=== PATIENT | female | born 1975 | race Caucasian/White ===

== ENCOUNTER 2017-11-09 10:08 | Outpatient (RCR) | payer OTHER, SELFPAY | END 2017-11-09 10:30 | disposition home or self-care (01) | LOC: PT 10:08 | PROVIDERS: Visit Provider Physician Assistant | DX: S99.912A Unspecified injury of left ankle, initial encounter (principal) | CPT/HCPCS: 97760 ==

== ENCOUNTER → 2017-11-09 15:45 | Outpatient (CLI) | payer OTHER, SELFPAY ==
--- NOTE | 2017-11-09 15:48 | MR_ITS ---
MR ankle LT wo con HISTORY: Left ankle pain, swelling, and instability ITS.REASON: LEFT ANKLE INJURY ORDERING PHYSICIAN: JOVANI Hernandez PATIENT AGE: 41 years COMPARISON: None TECHNIQUE: Standard multiplanar multiecho sequences are performed without contrast. FINDINGS: There is a moderate amount of fluid within ankle joint both anteriorly and posteriorly. The anterior talofibular ligament is discontinuous posteriorly consistent with tear of the ATFL. The posterior aspect of the ligament lies medial to the tip of the lateral malleolus. The remaining ligamentous and tendinous structures appear intact. There is mild subcutaneous soft tissue swelling along the lateral and anterolateral aspect of the ankle. A benign-appearing cystic lesion involves the mid aspect of the calcaneus measuring approximately 9 x 6 mm and is in the subcortical region of the mid aspect of the subtalar joint No obvious fracture or bone bruise. The talar dome has an unremarkable appearance. IMPRESSION: Tear of the posterior aspect of the anterior talofibular ligament with ankle joint effusion and soft tissue slight along the lateral aspect of the ankle
== END ==
PROVIDERS: Family Provider Family Medicine; PCP Physician Assistant; Visit Provider Physician Assistant
DX: S99.912A Unspecified injury of left ankle, initial encounter (principal)
CPT/HCPCS: 73721

== ENCOUNTER → 2017-11-22 16:13 | Outpatient (CLI) | payer OTHER, SELFPAY ==
--- NOTE | 2017-11-22 | XR_ITS ---
XR ankle RT min 3V HISTORY: Ankle pain ITS.REASON: PAIN ORDERING PHYSICIAN: Deborah Marte DPM PATIENT AGE: 41 years COMPARISON: None FINDINGS: Weightbearing views are performed No fracture or dislocation. No lytic or blastic change. There is normal mineralization.. The joint spaces are well-preserved. No significant degenerative/arthritic changes. No erosive changes evident. IMPRESSION: Negative ankle, no acute finding
--- NOTE | 2017-11-22 | XR_ITS ---
XR ankle LT min 3V HISTORY: Ankle pain ITS.REASON: PAIN ORDERING PHYSICIAN: Deborah Marte DPM PATIENT AGE: 41 years COMPARISON: None FINDINGS: Weightbearing views performed No fracture or dislocation. No lytic or blastic change. There is normal mineralization.. The joint spaces are well-preserved. No significant degenerative/arthritic changes. No erosive changes evident. IMPRESSION: Negative ankle, no acute finding
== END ==
PROVIDERS: Visit Provider Podiatrist
DX: M25.572 Pain in left ankle and joints of left foot (principal); M25.571 Pain in right ankle and joints of right foot
CPT/HCPCS: 73610

== ENCOUNTER → 2017-12-21 09:37 | Outpatient (CLI) | payer OTHER, SELFPAY ==
--- NOTE | 2017-12-21 10:01 | XR_ITS ---
XR chest 2V HISTORY: ITS.REASON: HTN ORDERING PHYSICIAN: Deborah Marte DPM PATIENT AGE: 41 years COMPARISON: None available FINDINGS: The cardiomediastinal silhouette and pulmonary vascularity are within normal limits. The lungs are clear without infiltrates, suspicious nodules, or pleural effusions. No acute bony abnormalities. IMPRESSION: Negative chest, no acute finding
[2017-12-21 10:16] LABS: Anion Gap 11.5 mEq/L (5-15); Basophils # 0.1 K/mm3 (0-0.2); Basophils % 0.8 % (0.1-2.0); Blood Urea Nitrogen 12 mg/dL (7-18); Carbon Dioxide 30 mmol/L (21.0-32.0); Chloride 102 mmol/L (98-107); Creatinine,Serum 0.96 mg/dL (0.55-1.02); Eosinophils # 0.3 K/mm3 (0.0-0.4); Eosinophils % 2.7 % (0.1-12.0); Estimated Glomerular Filt Rate 65 ml/min (>60); GFR (African American) 78 ML/MIN (>60); Glucose 97 mg/dL (74-106); Hematocrit 41.6 % (37.0-47.0); Hemoglobin 13.8 g/dL (12.2-16.2); Lymphocytes # 2.4 K/mm3 (0.7-4.5); Lymphocytes % 23.9 K/mm3 (10-50); Mean Corpuscular HGB Conc 33.2 g/dL (31.8-35.4); Mean Corpuscular Hemoglobin 33.5 pg (27.0-31.2); Mean Corpuscular Volume 100.6 fl (81-99); Mean Platelet Volume 8.3 fl (7.4-10.4); Monocytes # 0.4 K/mm3 (0.1-1.0); Monocytes % 4.3 % (1.7-9.3); Neutrophils # 6.7 K/mm3 (1.8-7.8); Neutrophils % 68.3 % (37.0-80.0); Platelet Count 338 K/mm3 (142-424); Potassium 4.5 mmoL/L (3.5-5.1); Red Blood Count 4.13 M/mm3 (4.20-5.40); Red Cell Distribution Width 13.3 % (11.5-17.5); Sodium 139 mmol/L (136-145); White Blood Count 9.8 K/mm3 (4.8-10.8)
== END ==
PROVIDERS: Visit Provider Podiatrist
DX: Z01.818 Encounter for other preprocedural examination (principal); S99.912D Unspecified injury of left ankle, subsequent encounter; S93.492D Sprain of other ligament of left ankle, subsequent encounter; S93.432A Sprain of tibiofibular ligament of left ankle, initial encounter
CPT/HCPCS: 36415; 71046; 80048; 85025; 93005

== ENCOUNTER 2017-12-27 08:13 | Day surgery (SDC) | payer OTHER, SELFPAY ==
[2017-12-26 08:53] VITALS: BMI 32.9
[2017-12-27] VITALS (13 sets, daily range): BP systolic 114–148; BP diastolic 61–86; PULSE 78–105; RESP 16; TEMP 36.6–43; O2SAT 98–99
[2017-12-27 08:38] LABS: Urine Pregnancy, HCG Qual. Negative (Negative)
--- NOTE | 2017-12-27 12:59 | HMH.ANESCL ---
[facility] Anesthesia Checklist - Patient Identification Patient Identification: Arm Band - Structural Data Admitted From: Home Planned Operative Procedure/s: left ankle arthroscopy Consent for Planned Operative Procedure(s) Verified: Yes Verified Documents: Surgical Consent, History and Physical - NPO Status Verified Time NPO: 00:00 - Additional verifications Anesthesia Reactions: No - Airway Assessment C-Spine Mobility Assessed: Yes (mp2) TMJ Mobility Assessed: Yes Dentition: Good Dentition - Neurological Assessment Level of Consciousness: Awake, Alert - Anesthesia Plan Anesthesia Risk discussed: Yes Anesthesia Plan: Verified ASA Class: II Anesthesia Type: General (with fem/sciatic block) [facility] Anesthesia HX I have reviewed the patient's past medical history: Yes Medical History: Reports:: Hypertension, Seizures (migraine related) Denies:: Cancer, Chronic Obstructive Pulmonary Disease (COPD), Diabetes Mellitus Type 1, Diabetes Mellitus Type 2, Gastroesophageal Reflux Disease(GERD), Heart Murmur, Hyperlipidemia, MRSA Other Medical History: Denies: Blood Transfusion Reaction Other Surgeries: Yes: , Tubal Ligation, Other Amputation: No Fractures: No *Family Hx:: Cancer, Hypertension
--- NOTE | 2017-12-27 13:00 | P.PN_ITS ---
[facility] Anesthesia Record Part II Discharge Time: 13:25 Destination: [facility] PACU nurse assessment reviewed?: Yes Patient Condition:: Good Anesthesia Complications:: None
--- NOTE | 2017-12-27 13:00 | P.PN_ITS ---
[facility] Anesthesia Record Part I Intake, IV Amount: 2,000 Estimated blood loss (mL): 30 Urine output (mL): 800 Blood Pressure: 135/82 SaO2: 99 Pulse Rate: 98 Respiratory Rate: 16 Temperature: 98.5 F Patient is:: Drowsy, Stable Stable to PACU at:: 12:55
--- NOTE | 2017-12-27 13:00 | HMH.ANESII ---
[facility] Anesthesia Record Part II Discharge Time: 13:25 Destination: [facility] PACU nurse assessment reviewed?: Yes Patient Condition:: Good Anesthesia Complications:: None
--- NOTE | 2017-12-27 13:04 | XR_ITS ---
XR ankle LT min 3V HISTORY: Follow-up ORIF ITS.REASON: post op ORDERING PHYSICIAN: Deborah Marte DPM PATIENT AGE: 41 years COMPARISON: None FINDINGS: Study is obtained through a splint. There is has been side plate placed at the distal shaft of the fibula with 2 screws. There are 2 metallic densities along the medial aspect of the distal tibia with some to be transfixed between the bone plate in these opacities by a radiolucent structure. There is good alignment. Small amount soft tissue gas noted of the anterior talus. IMPRESSION: Status post ORIF distal tib-fib with good alignment
--- NOTE | 2017-12-27 13:04 | HMH.OPNOTE ---
Date of procedure: 12/27/17 Pre-op Diagnosis:: Left ankle synovitis Left syndesmotic ligament tear Left anterior talofibular ligament tear, calcaneal fibular ligament tear Left chronic ankle instability Post-op Diagnosis:: Left ankle synovitis Left syndesmotic ligament tear Left anterior talofibular ligament tear, calcaneal fibular ligament tear Left chronic ankle instability Procedure performed:: Left ankle arthroscopy Left ankle synovectomy Left open reduction internal fixation syndesmosis (syndesmotic repair) Left modified Brostr?m lateral ankle ligament repair/stabilization Surgeon:: Deborah Marte DPM CLAIM PROCESSING SPECIALIST:: Gera Hidalgo Anesthesia: GETA Estimated blood loss (mL): 30 Clinical Note:: Ms. Cleveland is a 41-year-old female who presents for evaluation of left ankle pain. Date of injury 10/27/17. She initially went to a [facility] and treatments had x-rays which were negative fracture. Patient had continued pain and had an MRI 11/09/2017. The MRI showed tearing of the anterior talofibular ligament with ankle joint effusion and soft tissue swelling along the lateral aspect of the ankle. She does report a history of a left ankle sprain 4 years ago in which she was weightbearing in a fracture boot and had physical therapy. Patient complains of continued pain, swelling and instability. She was originally a short fracture boot which we changed to a tall boot. She was nonweightbearing with a rolling the scooter. She states she noticed no difference whether she was nonweightbearing in the scooter or weightbearing. Still having pain and feelings of instability. She did go without the boot and now she feels unstable not only in the ankle joint but also higher up with pain extending from the ankle to the lower extremity. She states that even in the boot she feels like the lower extremity is is twisting and and widening . Patient's symptoms have not improved. She has been compliant, NWB in fracture boot. Other previous treatment includes ice, elevation, Mobic, short fracture boot weightbearing, nonweightbearing until fracture boot, immobilization and nonweightbearing with a rolling the scooter. Patient now complains of increased instability even within the boot she feels that the distal leg is and the pain has not resolved. Left Ankle Pre-op: Conservative treatment discussed but has failed. She has been immobilized in a BK splint, fracture boot, NSAIDs, ice, elevation, rest and failed home PT. We discussed surgery. All risks and benefits were discussed including but not limited to: damage to blood vessels and nerves, bleeding, infection, wound complications, delayed or non-union of bone, post-traumatic arthritis, need for further surgery, need for removal of implant, prolonged swelling of the extremity, prolonged pain, RSD/CRPs, DVT, and anesthetic complications. No guarantees were given. All questions fully answered. The patient verbalized understanding and agreed to proceed with surgery. Consent was obtained. Necessary labs and pre-op testing ordered: CBC, BMP, EKG, CXR. Pt was given a Rx for [place] 7.5/325 # 30, Zofran, Motrin #60, and recommended she take aspirin 325 mg postoperatively. The risk factors for DVTs blood clots. She has no family history of blood clots. At this time I recommend that she takes aspirin after surgery and we will hold off on Lovenox anticoagulative therapy. She has fracture boot and rolling knee scooter. Patient verbalized understanding. She will follow up with Cathy Luque tomorrow for medical clearance. Plan surgery for: Wedn 12/27/17 for left modified Brostrum lateral ankle ligament repair, ORIF syndesmosis (syndesmotic ligament repair), ankle arthroscopy Operative findings:: Left ankle synovitis. The talar cartilage was all intact. There was synovitis noted to the ankle joint with hemorrhagic fluid lining the peroneal tendons. Peroneal tendons were intact with no tears noted. Complete tear noted to the ATFL and
--- NOTE | 2017-12-27 13:07 | P.OP_ITS ---
Date of procedure: 12/27/17 Pre-op Diagnosis:: Left ankle synovitis Left syndesmotic ligament tear Left anterior talofibular ligament tear, calcaneal fibular ligament tear Left chronic ankle instability Post-op Diagnosis:: Left ankle synovitis Left syndesmotic ligament tear Left anterior talofibular ligament tear, calcaneal fibular ligament tear Left chronic ankle instability Procedure performed:: Left ankle arthroscopy Left ankle synovectomy Left open reduction internal fixation syndesmosis (syndesmotic repair) Left modified Brostr?m lateral ankle ligament repair/stabilization Surgeon:: Deborah Marte DPM PATENT SEARCHER:: Gera iHdalgo Anesthesia: GETA Estimated blood loss (mL): 30 Clinical Note:: Ms. Cleveland is a 41-year-old female who presents for evaluation of left ankle pain. Date of injury 10/27/17. She initially went to a [facility] and treatments had x-rays which were negative fracture. Patient had continued pain and had an MRI 11/09/2017. The MRI showed tearing of the anterior talofibular ligament with ankle joint effusion and soft tissue swelling along the lateral aspect of the ankle. She does report a history of a left ankle sprain 4 years ago in which she was weightbearing in a fracture boot and had physical therapy. Patient complains of continued pain, swelling and instability. She was originally a short fracture boot which we changed to a tall boot. She was nonweightbearing with a rolling the scooter. She states she noticed no difference whether she was nonweightbearing in the scooter or weightbearing. Still having pain and feelings of instability. She did go without the boot and now she feels unstable not only in the ankle joint but also higher up with pain extending from the ankle to the lower extremity. She states that even in the boot she feels like the lower extremity is is twisting and and widening . Patient's symptoms have not improved. She has been compliant, NWB in fracture boot. Other previous treatment includes ice, elevation, Mobic, short fracture boot weightbearing, nonweightbearing until fracture boot, immobilization and nonweightbearing with a rolling the scooter. Patient now complains of increased instability even within the boot she feels that the distal leg is and the pain has not resolved. Left Ankle Pre-op: Conservative treatment discussed but has failed. She has been immobilized in a BK splint, fracture boot, NSAIDs, ice, elevation, rest and failed home PT. We discussed surgery. All risks and benefits were discussed including but not limited to: damage to blood vessels and nerves, bleeding, infection, wound complications, delayed or non-union of bone, post-traumatic arthritis, need for further surgery, need for removal of implant, prolonged swelling of the extremity, prolonged pain, RSD/CRPs, DVT, and anesthetic complications. No guarantees were given. All questions fully answered. The patient verbalized understanding and agreed to proceed with surgery. Consent was obtained. Necessary labs and pre-op testing ordered: CBC, BMP, EKG, CXR. Pt was given a Rx for [employer] 7.5/325 # 30, Zofran, Motrin #60, and recommended she take aspirin 325 mg postoperatively. The risk factors for DVTs blood clots. She has no family history of blood clots. At this time I recommend that she takes aspirin after surgery and we will hold off on Lovenox anticoagulative therapy. She has fracture boot and rolling knee scooter. Patient verbalized understanding. She will follow up with Cathy Luque tomorrow for medical clearance. Plan surgery for: Wedn 12/27/17 for left modified Brostrum lateral ankle ligament repair, ORIF syndesmosis (syndesmotic ligament repair), ankle arthroscopy Operative findings::
--- NOTE | 2017-12-27 14:08 | XR_ITS ---
XR ankle LT 2V HISTORY: ITS.REASON: LT ANKLE LIGAMENT REPAIR ORDERING PHYSICIAN: Deborah Marte DPM PATIENT AGE: 41 years COMPARISON: None Fluoroscopy time: 2 minutes FINDINGS: 2 images show a bone plate over the distal fibula with 2 small metallic disc of the distal tibia medially adjacent to radiolucent areas within the tibia. IMPRESSION: Good alignment status post ligamentous repair
--- NOTE | 2017-12-27 15:37 | SUR.OPER ---
1244-farah catheter removed at this time per GingerRN
[2017-12-27 17:39] LABS: Microscopic,Cath URINE MICROSCOPIC (MICROSCOPIC)
[2017-12-27 19:03] LABS: Appearance,Urine/Cath CLEAR (Clear); Bilirubin,Cath Negative (Negative); Blood, Urine/Cath Negative (Negative); Color,Urine/Cath YELLOW (Yellow); Glucose,Urine/Cath (UA) Negative (Negative); Ketones,Urine/Cath Negative (Negative); Leukocyte Esterase,Cath Negative (Negative); Nitrate,Cath Negative (Negative); Protein,Urine/Cath Negative (Negative); Specific Gravity, Urine/Cath 1.015 (1.005-1.030); Urobilinogen,Cath 0.2 EU/dl (0.2)
== END 2017-12-27 14:25 | disposition home or self-care (01) ==
LOC: OR 08:14
PROVIDERS: Family Provider Family Medicine; PCP Family Medicine; Visit Provider Podiatrist
PROC: (CPT 29895; principal; 2017-12-27 09:45)
DX: S93.492A Sprain of other ligament of left ankle, initial encounter; M25.372 Other instability, left ankle; R26.2 Difficulty in walking, not elsewhere classified; S93.412A Sprain of calcaneofibular ligament of left ankle, initial encounter
CPT/HCPCS: 29895; 27829; 73600; 73610; 76000; 81001; 81025; 96374; C1713; C1762; C1776; J2405; J2710

== ENCOUNTER 2018-01-05 22:19 | Emergency (ER) | payer OTHER, SELFPAY ==
[2018-01-05 22:29] VITALS: BP 155/102; PULSE 93; RESP 18; TEMP 37.3; O2SAT 96; BMI 33.5
--- NOTE | 2018-01-05 22:40 | CT_ITS ---
CT abdomen pelvis wo con COMPARISON: None HISTORY: Constipation for 10 days, some nausea and vomiting TECHNIQUE: Multiaxial scans obtained from hemidiaphragms to the pelvic floor and were performed without IV or oral contrast. Sagittal and coronal reformats were evaluated as well. FINDINGS: The lower lung maya are clear. Stomach is distended with ingested food particles and the gallbladder is partially contracted but shows no definite stones. The liver and spleen and pancreas appear normal. The adrenal glands are normal. The kidneys are normal size and there are no calculi and is no obstructive uropathy. Small bowel appears normal. The appendix is normal in caliber and retrocecal in location. There is large amount stool throughout the colon. The uterus is normal in size and deviated slightly to left of midline. There is an apparent left-sided tubal ligation clip. Urinary bladder is partially decompressed. There is a tampon in the vagina. There is no free fluid in the pelvis. IMPRESSION: Findings of moderate constipation, no other significant abnormality noted I agree with the [facility] report
--- NOTE | 2018-01-05 23:04 | PC.NURSE ---
Pt. to CT
[2018-01-05 23:11] LABS: Basophils % 0.3 % (0.1-2.0); Eosinophils # 0.1 K/mm3 (0.0-0.4); Eosinophils % 0.8 % (0.1-12.0); Hematocrit 44.8 % (37.0-47.0); Hemoglobin 14.9 g/dL (12.2-16.2); Lymphocytes # 1.5 K/mm3 (0.7-4.5); Lymphocytes % 12.8 K/mm3 (10-50); Mean Corpuscular HGB Conc 33.3 g/dL (31.8-35.4); Mean Corpuscular Hemoglobin 34.4 pg (27.0-31.2); Mean Corpuscular Volume 103.1 fl (81-99); Monocytes # 0.4 K/mm3 (0.1-1.0); Monocytes % 3.4 % (1.7-9.3); Neutrophils # 9.7 K/mm3 (1.8-7.8); Neutrophils % 82.7 % (37.0-80.0); Platelet Count 413 K/mm3 (142-424); Red Blood Count 4.34 M/mm3 (4.20-5.40); Red Cell Distribution Width 13.1 % (11.5-17.5); White Blood Count 11.8 K/mm3 (4.8-10.8)
[2018-01-05 23:20] VITALS: BP 129/99; PULSE 80; RESP 18; O2SAT 99
[2018-01-05 23:52] LABS: Alanine Aminotransferase 28 U/L (12-78); Albumin Level 4.1 gm/dL (3.4-5.0); Alkaline Phosphatase 60 U/L (46-116); Amylase 32 U/L (25-125); Anion Gap 12.8 mEq/L (5-15); Aspartate Amino Transferase 14 U/L (15-37); Bilirubin,Total 0.5 mg/dL (0.2-1.0); Blood Urea Nitrogen 11 mg/dL (7-18); Calcium 9.5 mg/dL (8.5-10.1); Carbon Dioxide 29 mmol/L (21.0-32.0); Chloride 101 mmol/L (98-107); Creatinine Clearance Estimated 101 mL/min (0-300); Creatinine,Serum 1.03 mg/dL (0.55-1.02); Estimated Glomerular Filt Rate 59 ml/min (>60); GFR (African American) 72 ML/MIN (>60); Globulin 4.1 gm/dl (1.3-3.2); Glucose 114 mg/dL (74-106); Lipase 126 u/L (73-393); Potassium 3.8 mmoL/L (3.5-5.1); Sodium 139 mmol/L (136-145); Total Protein,Serum 8.2 gm/dL (6.4-8.2)
--- NOTE | 2018-01-06 00:13 | HMH.EDGENADL ---
ED Disposition Clinical Impression: Constipation Qualifiers: Constipation type: slow transit constipation Qualified Code(s): K59.01 - Slow transit constipation Disposition: Home, Self-Care Condition on Discharge: Good Instructions: DI for Constipation Prescriptions: Polyethylene Glycol 3350 [Miralax 17gm Packet] 17 gm PO DAILY #5 packet Referrals: Abhay James MD [Primary Care Provider] - - Critical Care Critical Care Time: No Attestation: On 01/05/18, the high probability of a clinically significant, sudden or life threatening deterioration of the following system(s) required my full and direct attention, intervention and personal management. The time I documented below is in addition to time spent performing reported procedures but includes the following listed in this critical care notation. Medical Decision Making - Van Inquiry Pt receiving controlled substance: No Vital Signs: 01/05/18 22:29 01/05/18 23:20 Temperature 99.1 F Temperature Source Oral Pulse Rate [Right Radial] 93 H 80 Respiratory Rate 18 18 Blood Pressure [Right Arm] 155/102 129/99 Blood Pressure Mean [Right Arm] 119 109 Blood Pressure Source [Right Arm] Automatic Cuff Automatic Cuff Blood Pressure Position [Right Arm] Sitting Supine 02 Sat by Pulse Oximetry 96 99 Oxygen Delivery Method Room Air - Lab Data Lab Results 01/05/18 23:00: WBC 11.8 H, RBC 4.34, Hgb 14.9, Hct 44.8, MCV 103.1 H, MCH 34.4 H, MCHC 33.3, RDW 13.1, Plt Count 413, MPV 8.0, Neut % (Auto) 82.7 H, Lymph % (Auto) 12.8, Prentiss % (Auto) 3.4, Eos % (Auto) 0.8, Baso % (Auto) 0.3, Neut # (Auto) 9.7 H, Lymph # (Auto) 1.5, Prentiss # (Auto) 0.4, Eos # (Auto) 0.1, Baso # (Auto) 0.0 01/05/18 23:00: Sodium 139, Potassium 3.8, Chloride 101, Carbon Dioxide 29, Anion Gap 12.8, BUN 11, Creatinine 1.03 H, Estimated Creat Clear 101, Estimated GFR 59, Est GFR ( Amer) 72, Glucose 114 H, Calcium 9.5, Total Bilirubin 0.5, AST 14 L, ALT 28, Alkaline Phosphatase 60, Total Protein 8.2, Albumin 4.1, Globulin 4.1 H, Albumin/Globulin Ratio 1.0 L, Amylase 32 01/05/18 23:00: Lipase 126 01/06/18 02:50: Urine Color Yellow, Urine Appearance Clear, Urine pH 6.5, Ur Specific [place] 1.015, Urine Protein Negative, Urine Glucose (UA) Negative, Urine Ketones Negative, Urine Blood 3+, Urine Nitrate Negative, Urine Bilirubin Negative, Urine Urobilinogen 0.2, Ur Leukocyte Esterase Trace, Urine RBC 10-20, Urine WBC 3-5, Ur Squamous Epith Cells Occasional Result diagrams: 01/05/18 23:00 01/05/18 23:00 Orders (Tests/Meds): ED MEDICATIONS Discontinued Medications Generic Name Dose Route Start Last Admin Trade Name Freq PRN Reason Stop Dose Admin Sodium Chloride 1,000 mls @ 999 mls/hr 01/05/18 22:45 01/05/18 23:45 Sod Chlor 0.9% 1000ml Bag IV 01/05/18 23:15 Not Given .Q1H1M YASMANI Sodium Chloride 1,000 mls @ 999 mls/hr 01/05/18 23:45 01/05/18 23:51 Sod Chlor 0.9% 1000ml Bag IV 01/06/18 00:45 999 mls/hr .Q1H1M YASMANI Administration Magnesium Citrate 1 bot 01/06/18 01:23 01/06/18 01:43 Magnesium Citrate 10oz Bottle PO 01/06/18 01:24 1 bot ONCE ONE Administration Ondansetron HCl 4 mg 01/05/18 22:42 01/05/18 23:24 Zofran 4mg/2ml Vial IV 01/05/18 22:43 4 mg ONCE ONE Administration ORDERS Category Date Time Status CT abdomen pelvis wo con Stat Cat Scan 01/05/18 22:40 Taken - CT Data CT Scan: Abdomen, Pelvis Time Received: 00:[address] Reviewed: Yes: I have viewed the radiologist's interpretation Findings Narrative: CT scan interpreted by [facility] radiologist. Faxed report received and reviewed: Prominent stool burden, consistent with constipation. Normal appendix. Medical Decision Narrative: Small amount of blood in urine, patient is currently on menses. 3:19 AM: Patient has had bowel movement after enema and feels better. General Adult HPI - General Chief complaint: Urogenital-Female Stated complaint: [place] surgery [id number]
--- NOTE | 2018-01-06 02:39 | PC.NURSE ---
Pt had large BM after enema
[2018-01-06 02:56] LABS: Microscopic, Urine URINE MICROSCOPIC (MICROSCOPIC)
[2018-01-06 02:57] LABS: Appearance,Urine CLEAR (Clear); Bilirubin,Urine Negative (Negative); Blood, Urine 3+ (Negative); Color,Urine YELLOW (Yellow); Glucose,Urine (UA) Negative (Negative); Ketones,Urine Negative (Negative); Leukocyte Esterase,Urine TRACE (Negative); Nitrate,Urine Negative (Negative); PH,Urine 6.5 (5.0-8.5); Protein,Urine Negative (Negative); Specific Gravity, Urine 1.015 (1.005-1.030); Urobilinogen,Urine 0.2 EU/dl (0.2)
[2018-01-06 03:00] LABS: Squamous Epithelial Cell,Urine Occasional #/hpf (0-5)
[2018-01-06 03:33] VITALS: BP 126/84; PULSE 80; RESP 18; TEMP 37; O2SAT 98
== END 2018-01-06 03:33 | disposition home or self-care (01) ==
PROVIDERS: Emergency Provider Emergency Medicine; Family Provider Family Medicine; PCP Family Medicine
DX: K59.01 Slow transit constipation (principal); I10 Essential (primary) hypertension; Z88.2 Allergy status to sulfonamides
CPT/HCPCS: 74176; 80053; 81001; 82150; 83690; 85025; 96365; 96366; 96374; 96375; 99283; J2405

== ENCOUNTER → 2018-01-09 14:42 | Outpatient (CLI) | payer OTHER, SELFPAY ==
--- NOTE | 2018-01-09 14:43 | XR_ITS ---
XR ankle wt bearing LT min 3V HISTORY: Follow-up surgery, ankle pain ORDERING PHYSICIAN: Deborah Marte DPM PATIENT AGE: 42 years COMPARISON: 12/27/2017 FINDINGS: Status post fixation of the tibial fibular syndesmosis with a bone plate along the lateral aspect of the distal fibula with anchors of the distal tibia medially. There is good alignment. Splint is in place. IMPRESSION: Overall no change status post ORIF distal tibia best described above
== END ==
PROVIDERS: PCP Family Medicine; Visit Provider Podiatrist
DX: Z98.890 Other specified postprocedural states (principal)
CPT/HCPCS: 73610

== ENCOUNTER 2018-02-06 14:00 | Outpatient (RCR) | payer OTHER, SELFPAY ==
--- NOTE | 2018-01-26 10:11 | HMH.PTOPWND ---
Rehab Outpt Wound Evaluation Rehab OP Wound Evaluation Start: 01/26/18 10:02 Freq: Status: Active Protocol: Document 01/26/18 10:02 LISETH (Rec: 01/26/18 10:11 LISETH [id number]) Electronically Signed By Sergio Beauchamp, PT 01/26/18 10:02 Subjective/History History History Pt presents 1 mo S/P left ankle ligament repair with ORIF after original injury in October. She reports significant left lower leg edema much worse with dependent position and better in the am after sleeping with leg elevated. She reports significant pain when edema is severe and had mild dehiscence of her incision sites due to edema. PMH: C- section. Subjective Subjective Currently pain is 0/10, at worst pain is 6/10. Pt remains NWB for 2 additional wks. Lymphedema Eval Classification of Lymphedema Secondary Lymphedema Yes Post-Surgical Lymphedema Yes Stage of Lymphedema Lymphedema stages Stage I (Pitting edema, reduces w/ elevation, no fibrosis) Skin Changes Dry Skin Yes Affected Extremities Areas Affected by Lymphedema/Edema Left Lower Extremity Manual Lymphatic Drainage Treatment Area MLD Treatment Area Left Lower Extremity Wound Problems/Impairments Impairments Problems/Impairmments Palpation Tenderness Impaired Range of Motion Impaired Strength Increased Edema Lymphedema Present Wound Care Needs Subjective C/O Pain Impaired Self Care/Self Management Prognosis Rehab Potential Good Clinical Impression Consistent with Diagnosis Yes Short Term Goals Number of Weeks 4 Decreased Palpation Tenderness Yes: to min Improve Gait Pattern with Assistive Yes Device Decrease Edema Yes: by 25% Decrease Subjective C/O Pain Yes: 5/10 at worst Patient to be Ind w/ Lymphedema Yes Management Usp Goals Number of Weeks 8 Decreased Palpation Tenderness Yes: to none Decrease Edema Yes: by 75% Decrease Subjective C/O Pain Yes:
== END 2018-02-06 14:01 | disposition home or self-care (01) ==
LOC: PT 14:00
PROVIDERS: Family Provider Family Medicine; PCP Family Medicine; Visit Provider Podiatrist
DX: R60.0 Localized edema (principal)
CPT/HCPCS: 97140; 97162; 97760

== ENCOUNTER → 2018-02-28 12:48 | Outpatient (CLI) | payer OTHER, SELFPAY ==
--- NOTE | 2018-02-28 12:52 | XR_ITS ---
XR ankle wt bearing LT min 3V HISTORY: Follow-up surgery ITS.REASON: Status post foot surgery ORDERING PHYSICIAN: Deborah Marte DPM PATIENT AGE: 42 years COMPARISON: None FINDINGS: Status post fixation of the tibial fibular syndesmosis with a bone plate along the lateral aspect of the distal fibula with anchors of the distal tibia medially. There remains good alignment. Punctate areas of decreased density are present consistent with disuse osteoporosis. IMPRESSION: Status post ORIF with fixation of the distal tibia and fibula with good alignment with developing disuse osteoporosis
== END ==
PROVIDERS: PCP Family Medicine; Visit Provider Podiatrist
DX: Z98.890 Other specified postprocedural states (principal)
CPT/HCPCS: 73610

== ENCOUNTER → 2018-04-09 16:25 | Outpatient (CLI) | payer OTHER, SELFPAY ==
--- NOTE | 2018-04-09 16:26 | XR_ITS ---
XR foot wt bearing LT 3V HISTORY: Prior ankle reconstruction now with foot pain ITS.REASON: pain ORDERING PHYSICIAN: Deborah Marte DPM PATIENT AGE: 42 years COMPARISON: None FINDINGS: There is mottled decreased density involving the bones of the foot suggesting generalized osteopenia of the bones of the foot. No fracture or dislocation. No bony erosive process. There is been prior surgery at the ankle with fixation of the distal tib-fib as described in the recent ankle report of 02/28/2018 IMPRESSION: Generalized osteopenia otherwise negative left foot
== END ==
PROVIDERS: Visit Provider Podiatrist
DX: M79.673 Pain in unspecified foot (principal)
CPT/HCPCS: 73630

== ENCOUNTER 2018-04-17 17:00 | Outpatient (RCR) | payer OTHER, SELFPAY ==
--- NOTE | 2018-03-06 16:13 | HMH.PTOPEV ---
PT Outpatient Evaluation Rehab PT Outpatient Evaluation Start: 03/06/18 15:35 Freq: Status: Active Protocol: Document 03/06/18 16:00 SHANTALRONI (Rec: 03/06/18 16:12 ABELINO [id number]) Electronically Signed By Jose Juan Quiñones PT 03/06/18 16:00 Outpatient Therapy Subjective History Subjective History This is the initial Physical Therapy evalaution for Jarvis Cleveland. Pt is a 42 y/o female referred to PT s/p L ankle surgery. Surgery includes arthroscopic ligament, syndesmosis repair and ORIF. Surgery was 12/27/17 Chief Complaint Stiff Symptom Type Ache Throb Sharp Dull Symptoms Relieved By Rest/Positioning Symptoms Aggravated By Sitting Walking Prior Functional Limitations None Current Functional Limitations Housework Driving Sleeping Standing Recreation Activity Walking Stairs Symptom Description Constant but Variable Level of pain today (0-10) 3 Pain scale - at its best (0-10) 0 Pain scale - at its worst (0-10) 5 Ankle/Foot Eval Gait Observation General Gait Pattern Observation Antalgic Gait Assistive Device Ambulation Assistive Device Axillary Crutches Palpation Tenderness left Ankle/Foot Palpation Findings Tenderness Ankle/Foot Palpation Overall Comment TTP along anterior T/C joint and distal fibula ROM Ankle/Foot Dorsiflexion w/Knee Extended 5 deg from neutral Active Range Motion (degrees) Ankle/Foot Plantar Flexion Active Range 40 of Motion (degrees) Ankle/Foot Eversion Active Range of 10 Motion (degrees) Ankle/Foot Inversion Active Range of 10 Motion (degrees) Ankle/Foot ROM Limitations Soft Tissue Tightness Muscle Weakness Pain Outpatient Therapy Assessment Impairments Problems/Impairmments Palpation Tenderness Impaired Range of Motion Impaired Strength Impaired Endurance Impaired Gait Pattern Impaired Walking Impaired Standing Impaired Sitting
== END 2018-04-17 17:01 | disposition home or self-care (01) ==
LOC: PT 17:00
PROVIDERS: Family Provider Family Medicine; PCP Family Medicine; Visit Provider Podiatrist
DX: S93.432D Sprain of tibiofibular ligament of left ankle, subsequent encounter (principal); S93.492D Sprain of other ligament of left ankle, subsequent encounter
CPT/HCPCS: 97014; 97016; 97110; 97140; 97163; G0283

== ENCOUNTER → 2018-05-02 14:58 | Outpatient (CLI) | payer OTHER, SELFPAY ==
--- NOTE | 2018-05-02 15:00 | XR_ITS ---
XR ankle wt bearing LT min 3V HISTORY: ITS.REASON: fracture follow-up ORDERING PHYSICIAN: Deborah Marte DPM PATIENT AGE: 42 years Comparison: 02/28/2018 FINDINGS: Status post fixation of the tibial fibular syndesmosis with a bone plate along the lateral aspect of the distal fibula with anchors of the distal tibia medially. There remains good alignment. Punctate areas of decreased density are present consistent with disuse osteoporosis. This has shown some improvement IMPRESSION: Status post ORIF with fixation of the distal tibia and fibula with good alignment with persistent but improving disuse osteoporosis
--- NOTE | 2018-05-02 15:00 | XR_ITS ---
XR foot wt bearing LT 3V HISTORY: ITS.REASON: fracture follow up ORDERING PHYSICIAN: Deborah Marte DPM PATIENT AGE: 42 years COMPARISON: None FINDINGS: There is mottled decreased density involving the bones of the foot suggesting diffuse osteoporosis. No fracture or dislocation. No bony erosive process. There is been prior surgery at the ankle with fixation of the distal tib-fib syndesmosis IMPRESSION: Generalized osteopenia otherwise negative left foot
== END ==
PROVIDERS: Visit Provider Podiatrist
DX: S92.325A Nondisplaced fracture of second metatarsal bone, left foot, initial encounter for closed fracture (principal)
CPT/HCPCS: 73610; 73630

== ENCOUNTER → 2018-05-11 10:37 | Outpatient (CLI) | payer OTHER, SELFPAY ==
--- NOTE | 2018-05-11 10:48 | CA_ITS ---
PROCEDURE: 2-D M-mode and color Doppler study INDICATIONS FOR THE TEST: Chest pain + COPD Heart Murmur Tobacco Smoking Palpitations Fatigue+ Syncope Edema+ Hypertension+Diabetes Mellitus Rheumatic Fever SOB+FROST Obesity Hyperlipidemia+ Family History HD Additional History BREAST IMPLANTS PATIENT INFORMATION HEIGHT: 64 WEIGHT:195 GENDER: Female B/P:152/80 2-D/M-MODE INTERPRETATION: 2-D MEASUREMENTS OBSERVED VALUES IN CMS Right Ventricular Dimension (RVDd) 2.1 Interventricular Septum (Thickness)(IVsd) 1.1 Left Ventricular Internal Dimensions(LVIDd) 4.6 Left Ventricular Posterior Wall (Thickness)(LVPWd) 0.8 Aortic Root 3.2 Aortic Cusp Separation 2.0 Left Atrial Dimensions (LAD) 3.1 2D 1. Left atrium is normal size, left ventricle is normal size, there is no concentric left ventricular hypertrophy, visually estimated ejection fraction 55% with no obvious regional wall motion abnormality. 2. The right atrium and right ventricle are normal size and contractility. 3. The aortic, mitral and tricuspid valve are structurally normal. 4. The pulmonic valve is poorly visualized. 5. No significant pericardial effusion noted. DOPPLER INTERROGATION: Doppler interrogation of the aortic, mitral and tricuspid valvular presence of mild mitral and tricuspid regurgitation, tricuspid and jet velocity insufficient for acquisition of the right ventricular systolic pressure, diastolic parameters are within normal range. CONCLUSION: 1. Normal left ventricular size, preserved left ventricular systolic function, visually estimated ejection fraction 55% with no obvious regional wall motion abnormality, diastolic parameters are within normal range. 2. Mild mitral and tricuspid regurgitation 3. No significant pericardial effusion noted.
== END ==
PROVIDERS: Family Provider Family Medicine; PCP Family Medicine; Visit Provider Family Medicine
DX: R07.89 Other chest pain (principal)
CPT/HCPCS: 93017; 93306

== ENCOUNTER → 2018-07-09 16:49 | Outpatient (CLI) | payer OTHER, SELFPAY ==
--- NOTE | 2018-07-09 16:50 | XR_ITS ---
XR ankle wt bearing LT min 3V HISTORY: Follow-up surgery ITS.REASON: pain ORDERING PHYSICIAN: Deborah Marte DPM PATIENT AGE: 42 years Comparison: 05/02/2018 FINDINGS: Status post tib-fib fixation with a lateral bone plate of the distal fibula and 2 lucent fixators to the distal tibia. There remains good alignment. There is disuse osteopenia. IMPRESSION: Overall no change status post distal tib-fib fixation
--- NOTE | 2018-07-09 16:50 | XR_ITS ---
XR foot wt bearing LT 3V HISTORY: ITS.REASON: pain ORDERING PHYSICIAN: Deborah Marte DPM PATIENT AGE: 42 years COMPARISON: None FINDINGS: No fracture or dislocation. No lytic or blastic change. There is normal mineralization.. The joint spaces are well-preserved. No significant degenerative/arthritic changes. No erosive changes evident. There is minimal prominence of the space between the base of the first and second metatarsals. This however is a question clinical significance as the relationship between the base of the second metatarsal and mid cuneiform appears preserved. The osteopenia appears somewhat improved IMPRESSION: No change with no acute finding. Please see above for detail
== END ==
PROVIDERS: PCP Family Medicine; Visit Provider Podiatrist
DX: M25.572 Pain in left ankle and joints of left foot (principal); M79.672 Pain in left foot; S92.325D Nondisplaced fracture of second metatarsal bone, left foot, subsequent encounter for fracture with routine healing; M79.671 Pain in right foot
CPT/HCPCS: 73610; 73630

== ENCOUNTER → 2018-07-16 10:16 | Outpatient (CLI) | payer OTHER, SELFPAY ==
--- NOTE | 2018-07-16 10:23 | MR_ITS ---
MR foot LT wo/w con Ordering Physician: Deborah Marte DPM Patient Age: 42 years: Female HISTORY: ITS.REASON: evaluate for sprain Left foot pain since March. Previous ankle surgery December. Pain is dorsal midfoot with pushing off going up steps walking. TECHNIQUE: Multiplanar multisequence imaging 1.5 TE MR. Postcontrast imaging performed following 20 mL ProHance. Coronal and axial imaging performed. Imaging performed pre and postcontrast. ProHance utilized. COMPARISON :Plain films left ankle 7 09/09 and 07/09/2018. . MRI from October 2017 BACKGROUND Previous plain films show previous fixation at distal tibia/fibula. Metallic plate applied to the distal fibular shaft with 2 radiolucent tracts passing through the tibia & fibula, associated with 2 small anchors medial aspect distal tibial. Degenerative changes are seen at the plain film at the distal ankle mortise. On also note that the MR I October 2017 showed abnormalities at the ankle with what appear to be a tear at the anterior talofibular ligament . CURRENT FINDINGS: Today's MR study shows variety of minimal new findings.. Discussion begins proximal, at the ankle . metallic artifact from the fixation elements seen at the distal most shaft of the fibula and tibia. Relationships appear normal at the ankle mortise, but note area of reactive bone, bone contusion at the MEDIAL malleolus of most pronounced towards the joint/subarticular region. Posterior aspect. Best seen coronal image 42.Axial 6. Minor edema seen here. Only question subtle increased/ upper normal signal at the medial corner of talus at and anterior to this region. Equivocal. (Coronal image 40). Moderate enhancement of soft tissues overlying the lateral malleolus, with persistent mild edema here.. Likely still reflect postsurgical changes with healing granulation tissue overlying the postsurgical site at tip of lateral malleolus. Clinical correlation required.Subtle increased fluid persists at the anterior aspect of the lateral ankle joint. Minimal ankle joint effusion persists extends to the posterior aspect of subtalar joint... . most prominent finding, most prominent notable focus of bone contusion is at tarsal navicular, along its dorsal/lateral aspect. (Sagittal image 17, 16 and axial slice 10; coronal slice 34 & 33). This is new since previous studies.. Slight diffuse enhancement of this region postcontrast as well reflecting inflammation most likely. . The relationships appear satisfactory & fairly stable about the talonavicular joint and navicular. Overall Stable relationships with other adjacent tarsals. --Other minimal observations:-- .Suggestion subtle increased signal at the distal/lateral corner of the Intermediate Cuneiform.Very minimal observation (.Sagittal image 11 axial 11, 10.) Mild enhancement here also noted may reflect some minor arthritic changes here. . Perhaps equivocal trace chondral thinning in this region at the second tarsal metatarsal joint. Very minor observation here. Likely very minor reactive bone change early arthritic change... .The head and subarticular region of the second metatarsal demonstrates minimal enhancement post contrast. Question small subchondral cyst possibly developing here. Again very subtle & unimpressive but noted for completeness. No flattening of the metatarsal head nor diffuse increased signal as might be seen with Freiberg's infraction . Small just less than 5 mm subchondral cystic area at medial base, proximal phalanx great toe at first MTP joint The peroneus tendons appear to be intact. Posterior tibial tendon intact plantar aponeurosis unremarkable. Achilles tendon unremarkable. No stress fracture evident at metatarsals . Stable cystic area inferior to the angle of Gissane extending into
== END ==
PROVIDERS: Family Provider Family Medicine; PCP Family Medicine; Visit Provider Podiatrist
DX: S93.622A Sprain of tarsometatarsal ligament of left foot, initial encounter (principal)
CPT/HCPCS: 73720; A9576

== ENCOUNTER → 2018-09-26 13:04 | Outpatient (CLI) | payer OTHER, SELFPAY ==
--- NOTE | 2018-09-26 13:06 | XR_ITS ---
XR foot wt bearing LT 3V HISTORY: ITS.REASON: pain ORDERING PHYSICIAN: Deborah Marte DPM PATIENT AGE: 42 years COMPARISON: 07/09/2018 FINDINGS: No fracture or dislocation. No lytic or blastic change. Postsurgical changes are present at the ankle. There is normal alignment. IMPRESSION: No change with no acute finding.
--- NOTE | 2018-09-26 13:06 | XR_ITS ---
XR ankle wt bearing LT min 3V HISTORY: ITS.REASON: pain ORDERING PHYSICIAN: Deborah Marte DPM PATIENT AGE: 42 years Comparison: 07/09/2018 FINDINGS: Status post fixation of the distal tib-fib with radiolucent anchors extending from the bone plate from the distal fibula to metallic buttons along the medial distal tibia. The alignment is maintained. Ankle mortise is preserved. No fracture or dislocation. IMPRESSION: No change with no acute findings status post ORIF distal tib-fib
== END ==
PROVIDERS: PCP Family Medicine; Visit Provider Podiatrist
DX: M79.672 Pain in left foot (principal); M25.572 Pain in left ankle and joints of left foot
CPT/HCPCS: 73610; 73630

== ENCOUNTER → 2018-09-28 14:47 | Outpatient (CLI) | payer OTHER, SELFPAY | PROVIDERS: PCP Family Medicine; Visit Provider Podiatrist | DX: M25.572 Pain in left ankle and joints of left foot (principal); S86.302A Unspecified injury of muscle(s) and tendon(s) of peroneal muscle group at lower leg level, left leg, initial encounter; R60.0 Localized edema ==

== ENCOUNTER → 2018-10-03 09:03 | Outpatient (CLI) | payer OTHER, SELFPAY ==
--- NOTE | 2018-10-03 09:04 | MR_ITS ---
MR ankle LT wo/w con MR foot LT wo/w con TECHNIQUE: Pre and postcontrast imaging left ankle and foot. Precontrast images Multiplanar multisequence imaging on 1.5, teslas Siemens MR . Imaging at the left foot performed along, with separate image session at the left ankle Postcontrast study in the coronal & axial plane following 19 mL ProHance. Sagittal postcontrast sequence included Ordering Physician: Deborah Marte DPM Patient Age: 42 years: Female HISTORY: ITS.REASON: Ankle sprain, injury of peroneal tendon of L Foot HISTORY: ITS.REASON: Left Peroneal Tendon Injury pain is posterior and lateral ankle currently. Twisted ankle and foot and August. And prior surgery left ankle and December 2017.. COMPARISON with previous MRI left foot July 16, 2018. Also plain films of left ankle and foot from both July 09, 2018 and 09/26/2018 ========= MRI FOOT WITH AND WITHOUT CONTRAST As was noted on June 2018 exam, the most intense area of increased activity is at the lateral/dorsal aspect of the navicular9 x-rays. This region of increased bone signal is even more pronounced on today's that was previously. This nicely seen on the coronal STIR image 32 when measured up to 16 mm transverse and just over 10 mm height.. Small Subchondral cystic feature is noted central within this area of increased bone signal. This area shows mild diffuse enhancement on today's postcontrast images.. Also more pronounced focus of increased bone signal measuring roughly 10 mm seen at the calcaneus just beneath the angle of gissane likely reflecting a progression subchondral cyst and reactive bone change. This is nicely seen on sagittal image 19 today's study as well as corresponding views. No significant increase fluid at the subtalar joint. Nonspecific feature that can be seen with lateral hindfoot impingement but no associated increased signal at the calcaneus. No significant narrowing at the subtalar joint The metatarsals and 4 foot otherwise appears satisfactory. Noting lateral pain is at specifically note that the cuboid and lateral base of fourth and fifth metatarsals intact. Scant degenerative changes first MTP joint with tiny subchondral cyst at medial base of proximal phalanx MRI LEFT ANKLE WITH & WITHOUT CONTRAST: The patient is status post fixation of the distal tibia-fibula with bone plate applied to the lateral aspect of the distal fibula and metallic buttons at the medial aspect of the distal tibial with anchors, with radiolucent fixation elements between these metallic elements providing stabilization/fixation between the tibia-fibula providing fixation. This is been seen on the June 2000 09 October 2018 study.). Stable on plain film the fibular-tibial relationships appear satisfactory. There is metallic and postsurgical artifact of from these features here at the distal tibia and fibula shaft and diametaphyseal region. Understand has lateral ankle pain. The peroneus longus tendon appears intact Peroneus brevis tendon is thin less well-visualized with upper normal slightly terrell signal but appears intact. although thin and has fairly satisfactory signal on the axial image ; more difficult to totally exclude mild tendinopathy of peroneus brevis on the sagittal image but this may reflect magic angle artifact. Appears to be Anterior Talofibular Ligament Tear, reflecting ankle sprain. At least a grade 2 Tear. Increased Focal fluid is seen about an overlying area with with discontinuity most evident towards inferior aspect this ligament as suggested on axial images. It. Increased fluid tracks into the joint as well.. On previous study there is extensive edema overlying the lateral malleolus. Only some mild focal edema and fluid is seen immediately anterior to the inferior fibular ta
--- NOTE | 2018-10-03 09:24 | MR_ITS ---
MR ankle LT wo/w con MR foot LT wo/w con Ordering Physician: Deborah Marte DPM Patient Age: 42 years: Female HISTORY: ITS.REASON: Left Peroneal Tendon Injury pain is posterior and lateral ankle currently. Twisted ankle and foot and August. And prior surgery left ankle and December 2017. TECHNIQUE: Pre and postcontrast imaging left ankle and foot. Precontrast images Multiplanar multisequence imaging on 1.5, teslas Siemens MR . Imaging at the left foot performed along, with separate image session at the left ankle Postcontrast study in the coronal & axial plane following 19 mL ProHance. Sagittal postcontrast sequence included COMPARISON with previous MRI left foot July 16, 2018. Also plain films of left ankle and foot from both July 09, 2018 and 09/26/2018 ========= MRI FOOT WITH AND WITHOUT CONTRAST As was noted on June 2018 exam, the most intense area of increased activity is at the lateral/dorsal aspect of the navicular9 x-rays. This region of increased bone signal is even more pronounced on today's that was previously. This nicely seen on the coronal STIR image 32 when measured up to 16 mm transverse and just over 10 mm height.. Small Subchondral cystic feature is noted central within this area of increased bone signal. This area shows mild diffuse enhancement on today's postcontrast images.. Also more pronounced focus of increased bone signal measuring roughly 10 mm seen at the calcaneus just beneath the angle of gissane likely reflecting a progression subchondral cyst and reactive bone change. This is nicely seen on sagittal image 19 today's study as well as corresponding views. No significant increase fluid at the subtalar joint. Nonspecific feature that can be seen with lateral hindfoot impingement but no associated increased signal at the calcaneus. No significant narrowing at the subtalar joint The metatarsals and 4 foot otherwise appears satisfactory. Noting lateral pain is at specifically note that the cuboid and lateral base of fourth and fifth metatarsals intact. Scant degenerative changes first MTP joint with tiny subchondral cyst at medial base of proximal phalanx MRI LEFT ANKLE WITH & WITHOUT CONTRAST: The patient is status post fixation of the distal tibia-fibula with bone plate applied to the lateral aspect of the distal fibula and metallic buttons at the medial aspect of the distal tibial with anchors, with radiolucent fixation elements between these metallic elements providing stabilization/fixation between the tibia-fibula providing fixation. This is been seen on the June 2000 09 October 2018 study.). Stable on plain film the fibular-tibial relationships appear satisfactory. There is metallic and postsurgical artifact of from these features here at the distal tibia and fibula shaft and diametaphyseal region. Understand has lateral ankle pain. The peroneus longus tendon appears intact Peroneus brevis tendon is thin less well-visualized with upper normal slightly terrell signal but appears intact. although thin and has fairly satisfactory signal on the axial image ; more difficult to totally exclude mild tendinopathy of peroneus brevis on the sagittal image but this may reflect magic angle artifact. Appears to be Anterior Talofibular Ligament Tear, reflecting ankle sprain. At least a grade 2 Tear. Increased Focal fluid is seen about an overlying area with with discontinuity most evident towards inferior aspect this ligament as suggested on axial images. It. Increased fluid tracks into the joint as well.. On previous study there is extensive edema overlying the lateral malleolus. Only some mild focal edema and fluid is seen immediately anterior to the inferior fibular talar articulation on today's study Medial malleolus . There is increase
== END ==
PROVIDERS: PCP Family Medicine; Visit Provider Podiatrist
DX: S86.302A Unspecified injury of muscle(s) and tendon(s) of peroneal muscle group at lower leg level, left leg, initial encounter (principal); S93.402A Sprain of unspecified ligament of left ankle, initial encounter
CPT/HCPCS: 73223; 73720; A9576

== ENCOUNTER → 2018-10-05 09:57 | Outpatient (CLI) | payer OTHER, SELFPAY ==
--- NOTE | 2018-10-05 10:02 | XR_ITS ---
XR chest 2V HISTORY: Hypertension ITS.REASON: HTN ORDERING PHYSICIAN: Deborah Marte DPM PATIENT AGE: 42 years COMPARISON: None FINDINGS: The cardiomediastinal silhouette and pulmonary vascularity are within normal limits. The lungs are clear without infiltrates, suspicious nodules, or pleural effusions. No acute bony abnormalities. IMPRESSION: Negative chest, no acute finding
[2018-10-05 11:05] LABS: Basophils # 0.1 K/mm3 (0-0.2); Basophils % 0.7 % (0.1-2.0); Eosinophils # 0.2 K/mm3 (0.0-0.4); Eosinophils % 2.1 % (0.1-12.0); Hematocrit 40.5 % (37.0-47.0); Hemoglobin 12.9 g/dL (12.2-16.2); Lymphocytes # 2.4 K/mm3 (0.7-4.5); Lymphocytes % 27.3 % (10-50); Mean Corpuscular HGB Conc 31.8 g/dL (31.8-35.4); Mean Corpuscular Hemoglobin 33.2 pg (27.0-31.2); Mean Corpuscular Volume 104.5 fl (81-99); Mean Platelet Volume 7.6 fl (7.4-10.4); Monocytes # 0.4 K/mm3 (0.1-1.0); Monocytes % 4.8 % (1.7-9.3); Neutrophils # 5.7 K/mm3 (1.8-7.8); Neutrophils % 65.1 % (37.0-80.0); Platelet Count 357 K/mm3 (142-424); Red Blood Count 3.88 M/mm3 (4.20-5.40); Red Cell Distribution Width 13.8 % (11.5-17.5); White Blood Count 8.7 K/mm3 (4.8-10.8)
[2018-10-05 11:58] LABS: Alanine Aminotransferase 41 U/L (12-78); Albumin Level 3.8 gm/dL (3.4-5.0); Albumin/Globulin Ratio 1.2 (1.1-1.8); Alkaline Phosphatase 66 U/L (46-116); Anion Gap 13.1 mEq/L (5-15); Aspartate Amino Transferase 17 U/L (15-37); Bilirubin,Total 0.4 mg/dL (0.2-1.0); Blood Urea Nitrogen 11 mg/dL (7-18); Calcium 8.9 mg/dL (8.5-10.1); Carbon Dioxide 27 mmol/L (21.0-32.0); Chloride 103 mmol/L (98-107); Creatinine,Serum 0.89 mg/dL (0.55-1.02); Estimated Glomerular Filt Rate 70 ml/min (>60); GFR (African American) 85 ML/MIN (>60); Globulin 3.2 gm/dl (1.3-3.2); Glucose 95 mg/dL (74-106); Potassium 4.1 mmoL/L (3.5-5.1); Sodium 139 mmol/L (136-145)
== END ==
PROVIDERS: PCP Family Medicine; Visit Provider Podiatrist
DX: Z01.818 Encounter for other preprocedural examination (principal)
CPT/HCPCS: 36415; 71046; 80053; 85025; 93005

== ENCOUNTER → 2018-10-25 09:21 | Outpatient (CLI) | payer OTHER, SELFPAY ==
--- NOTE | 2018-10-25 09:22 | XR_ITS ---
XR DEXA axial skeleton HISTORY: ITS.REASON: multiple fractures, family history osteoporosis ORDERING PHYSICIAN: Deborah Marte DPM PATIENT AGE: 42 years COMPARISON: None FINDINGS: The BMD measured at the AP Spine L1-L4 is 1.009 g/cm squared with a T score of -1.4. This is considered Osteopenic according to the World Health Organization criteria. Fracture risk is Moderate. Treatment is advised. The mean density of the hips has a T score of 0.1 which is within normal limits. IMPRESSION: Osteopenia with moderate fracture risk. Treatment is advised. Suggest follow-up exam October 2020
--- NOTE | 2018-10-25 10:08 | XR_ITS ---
XR foot wt bearing LT 3V HISTORY: Follow-up surgery ITS.REASON: postop views ORDERING PHYSICIAN: Deborah Marte DPM PATIENT AGE: 42 years COMPARISON: 10/12/2018 FINDINGS: Postsurgical changes present with a transverse screw once again noted into the navicular from a lateral approach with good alignment. Prior ORIF distal tib-fib. Screw remains in place. Splint has been removed IMPRESSION: Splint has been removed otherwise no change
== END ==
PROVIDERS: PCP Family Medicine; Visit Provider Podiatrist
DX: M87.00 Idiopathic aseptic necrosis of unspecified bone (principal); M79.673 Pain in unspecified foot
CPT/HCPCS: 73630; 77080

== ENCOUNTER → 2018-11-13 14:17 | Outpatient (CLI) | payer OTHER, SELFPAY ==
--- NOTE | 2018-11-13 14:20 | XR_ITS ---
XR foot wt bearing LT 3V HISTORY: Follow-up surgery ITS.REASON: post-op views ORDERING PHYSICIAN: Deborah Marte DPM PATIENT AGE: 42 years COMPARISON: 10/25/2018 FINDINGS: A transverse screw is once again noted within the navicular not significant changed. Bone plates at the lower tibia and fibula also noted. There is borderline pes planus. IMPRESSION: Stable postsurgical changes with borderline pes planus
== END ==
PROVIDERS: PCP Family Medicine; Visit Provider Podiatrist
DX: Z98.890 Other specified postprocedural states (principal)
CPT/HCPCS: 73630

== ENCOUNTER → 2018-12-04 08:06 | Outpatient (CLI) | payer OTHER, SELFPAY ==
--- NOTE | 2018-12-04 08:11 | XR_ITS ---
XR foot wt bearing LT 3V HISTORY: Follow-up surgery ITS.REASON: Post-op ORDERING PHYSICIAN: Deborah Marte DPM PATIENT AGE: 42 years COMPARISON: 11/13/2018 FINDINGS: Overall no change. A screw is present within the navicular as before unchanged. There is pes planus. Bone plate is noted over the distal fibula with retainers at the distal tibia. IMPRESSION: No change postsurgical changes with mild pes planus
== END ==
PROVIDERS: PCP Family Medicine; Visit Provider Podiatrist
DX: Z98.890 Other specified postprocedural states (principal)
CPT/HCPCS: 73630

== ENCOUNTER 2019-01-01 13:00 | Outpatient (RCR) | payer OTHER, SELFPAY ==
--- NOTE | 2018-12-26 18:00 | [facility].PTOPEV ---
PT Outpatient Evaluation Rehab PT Outpatient Evaluation Start: 12/26/18 17:48 Freq: Status: Active Protocol: Document 12/26/18 17:48 AUBRIEVALERIE (Rec: 12/26/18 18:00 MAI [id number]) Electronically Signed By Shashi Washington, PT 12/26/18 17:48 Outpatient Therapy Subjective History Subjective History Patient is a 42 year old female presenting to outpatient PT with reports of L foot/ankle pain S/P L foot/ ankle ORIF x 2. Initial injury occured in 12/2017 secondary to a fall at home. She completed a previous episode of PT that provided some improvements. In 08/2018 she began to have persistent pain. 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 No other comorbidites to report. Chief Complaint Pain Stiff Swelling Paresthesia Weakness Symptom Type Ache Numbness Tingling Symptoms Relieved By Rest/Positioning Symptoms Aggravated By Standing Physical Activity Walking Prior Functional Limitations None Current Functional Limitations Housework Standing Squatting Recreation Activity Walking Stairs Balance Level of pain today (0-10) 2 Pain scale - at its best (0-10) 0 Pain scale - at its worst (0-10) 4 Ankle/Foot Eval Gait Observation General Gait Pattern Observation Antalgic Gait Decrease Weight Bear (L) Assistive Device Ambulation Assistive Device None Palpation Tenderness left Ankle/Foot Palpation Findings Tenderness Ankle/Foot Palpation Overall Comment distal posterior tibialis ATF TTP positive ROM Ankle/Foot Dorsiflexion w/Knee Extended 3 Active Range Motion (degrees) Ankle/Foot Dorsiflexion w/Knee Extended 7 Passive Range (degrees) Ankle/Foot Plantar Flexion Active Range 60 of Motion (degrees) Ankle/Foot Eversion Active Range of 14 Motion (degrees) Ankle/Foot Inversi
== END 2019-01-01 13:05 | disposition home or self-care (01) ==
LOC: PT 13:00
PROVIDERS: Visit Provider Podiatrist
DX: S92.252A Displaced fracture of navicular [scaphoid] of left foot, initial encounter for closed fracture (principal); Z98.890 Other specified postprocedural states
CPT/HCPCS: 97163; 97760

== ENCOUNTER → 2019-01-18 11:08 | Outpatient (CLI) | payer OTHER, SELFPAY ==
[2019-01-18 12:35] LABS: Anion Gap 16.4 mEq/L (5-15); Blood Urea Nitrogen 15 mg/dL (7-18); Calcium 9.2 mg/dL (8.5-10.1); Carbon Dioxide 24 mmol/L (21.0-32.0); Chloride 105 mmol/L (98-107); Chol/HDL Ratio 6.3 (1-3.5); Cholesterol 247 mg/dL (140-200); Creatinine,Serum 0.87 mg/dL (0.55-1.02); Estimated Glomerular Filt Rate 72 ml/min (>60); Free T4 (Free Thyroxine) 0.86 ng/dl (0.76-1.46); GFR (African American) 87 ML/MIN (>60); Glucose 90 mg/dL (74-106); HDL Cholesterol 39 mg/dL (29-89); LDL Cholesterol 152 mg/dL (0-130); Potassium 4.4 mmoL/L (3.5-5.1); Sodium 141 mmol/L (136-145); Thyroid Stimulating Hormone 2.14 uIU/ml (0.358-3.740); Triglycerides 278 mg/dL (30-200); VLDL Cholesterol 56 mg/dL (0-40)
== END ==
PROVIDERS: Visit Provider Emergency Medicine
DX: R53.83 Other fatigue (principal); Z79.899 Other long term (current) drug therapy
CPT/HCPCS: 80048; 80061; 84439; 84443

== ENCOUNTER → 2019-02-04 07:59 | Outpatient (CLI) | payer OTHER, SELFPAY ==
--- NOTE | 2019-02-04 08:06 | XR_ITS ---
XR foot wt bearing LT 3V HISTORY: Postop pain and swelling ITS.REASON: Post-op ORDERING PHYSICIAN: Deborah Marte DPM PATIENT AGE: 43 years COMPARISON: 12/14/2018 FINDINGS: There is mild pes planus. A screw remains within the navicular from the lateral and dorsal approach. Postsurgical changes of the distal tibia and fibula as previously described. IMPRESSION: Postsurgical change, no change with no acute finding
== END ==
PROVIDERS: PCP Emergency Medicine; Visit Provider Podiatrist
DX: Z98.890 Other specified postprocedural states (principal); M79.672 Pain in left foot
CPT/HCPCS: 73630

== ENCOUNTER → 2019-04-03 07:48 | Outpatient (CLI) | payer OTHER, SELFPAY ==
--- NOTE | 2019-04-03 07:49 | AS_ITS ---
Renal Arterial Duplex Indications: 405.91 Unspecified renovascular hypertension. IMPRESSIONS 1. Moderate stenosis of the left renal artery of 60%or less. CTA may be of further value 2. The right renal artery appears normal. History: Risk factors: Hypertension. Dyslipidemia. Complete renal arterial duplex. Duplex scan and Doppler flow study including spectral analysis, color and terrell scale imaging. Height: Height: 165.1cm. Height: 65in. Weight: Weight: 93.9kg. Weight: 206.6lb. Body mass index: BMI: 34.4kg/m^2. Body surface area: BSA: 2.11m^2. Location: Vascular laboratory. Patient status: Outpatient. Tables: Arterial flow: + +-------+--------+ Location V sys V ed + +-------+--------+ Right renal - proximal 168cm/s 59.5cm/s + +-------+--------+ Right renal - mid 127cm/s 27.4cm/s + +-------+--------+ Right renal - distal 129cm/s 49cm/s + +-------+--------+ Left renal - proximal 126cm/s 32.4cm/s + +-------+--------+ Left renal - mid 207cm/s 72cm/s + +-------+--------+ Left renal - distal 110cm/s 33.2cm/s + +-------+--------+ Right renal-origin 173cm/s 60.6cm/s + +-------+--------+ Left renal-origin 129cm/s 44.1cm/s + +-------+--------+ Aorta-prox 123cm/s -------- + +-------+--------+ Renal anatomy: + +------+------+ Left Right + +------+------+ Long axis 13.5cm 11.2cm + +------+------+ Short axis 8.4cm 6.4cm + +------+------+ Cortical thickness 1.9cm 1.4cm + +------+------+ Velocity ratios: + +-----+ V sys + +-----+ Right renal/aortic 1.4 + +-----+ Left renal/aortic 1.7 + +-----+ (Report amended ) Electronically signed by: Kedar Copeland [id number]
== END ==
PROVIDERS: PCP Emergency Medicine; Visit Provider Emergency Medicine
DX: I10 Essential (primary) hypertension (principal)
CPT/HCPCS: 93976

== ENCOUNTER → 2019-04-17 09:25 | Outpatient (CLI) | payer OTHER, SELFPAY ==
--- NOTE | 2019-04-17 09:27 | CT_ITS ---
CT angio abdomen CLINICAL INDICATION: ITS.REASON: left renal stenosis ORDERING PHYSICIAN: Lauren Bourne APRN PATIENT AGE: 43 years COMPARISON: None TECHNIQUE: Axial images obtained with sagittal and coronal reformats. All CT scans at the facility use one or more dose reduction, viz: automated exposure control, ma/kV adjustment per patient size (including targeted exams where dose is matched to indication, i.e. head), or iterative reconstruction technique. PROCEDURE: Oral Contrast: None IV Contrast: Yes . FINDINGS: Lower thorax: No acute finding The abdominal aorta is normal. There are solitary renal arteries bilaterally which are normal without stenosis or atherosclerotic changes. Also visualized portions of the celiac, SMA and ERIC vessels are normal. The length of the right and left kidneys are 10.8 and 12.5 cm respectively. Liver, gallbladder, spleen, pancreas and adrenal glands are normal. Kidneys and visualized portions of the urinary bladder are unremarkable. The pelvic images do not completely evaluate the urinary bladder and uterus. GI tract is unremarkable. Appendix is normal. There are a few small right lower quadrant benign-appearing lymph nodes. Visualized portions of the uterus are normal. There is a clip at the left adnexa. There is no acute osseous process. IMPRESSION: Axial images did not cover the entire lower pelvis area. No evidence of atherosclerotic disease. Specifically no renal artery stenosis. Right kidney is smaller than left and this could be congenital.
== END ==
PROVIDERS: PCP Emergency Medicine; Visit Provider Nurse Practitioner Family
DX: I70.1 Atherosclerosis of renal artery (principal)
CPT/HCPCS: 74175; Q9967

== ENCOUNTER → 2019-11-19 16:53 | Outpatient (CLI) | payer OTHER, SELFPAY ==
--- NOTE | 2019-11-19 17:00 | XR_ITS ---
PROCEDURE: XR ANKLE WT BEARING LT MIN 3V CLINICAL INDICATION: ankle pain, rolled ankle Pain and swelling following injury COMPARISON: [id number] XR ankle wt bearing LT min 3V from 02/28/2018 ANKWBL3 XR ankle wt bearing LT min 3V from 05/02/2018 ANKWBL3 XR ankle wt bearing LT min 3V from 07/09/2018 FINDINGS: Prior syndesmotic repair of the distal tib fib with lateral bone plate of the distal fibula with translucent fixators through the tibia as before not significantly changed. The ankle mortise is well preserved. The talar dome has an unremarkable appearance. There is a screw present within the navicular which has been placed since the previous exam. There is a faint area of calcification along the posterior aspect of the talus.. There is soft tissue swelling laterally IMPRESSION: Postsurgical changes, soft tissue swelling otherwise negative Dictated by: Kedar Copeland MD 11/19/2019 17:12 Electronically signed by Kedar Copeland MD in [place] 11/19/2019 17:12
== END ==
PROVIDERS: PCP Physician Assistant; Visit Provider Podiatrist
DX: M25.572 Pain in left ankle and joints of left foot (principal)
CPT/HCPCS: 73610

== ENCOUNTER → 2020-06-04 14:21 | Outpatient (CLI) | payer OTHER, SELFPAY ==
[2020-06-04 14:32] LABS: Basophils % 0.5 % (0.1-2.0); Eosinophils # 0.2 K/mm3 (0.0-0.4); Hematocrit 41.2 % (37.0-47.0); Hemoglobin 13.8 g/dL (12.2-16.2); Lymphocytes # 1.8 K/mm3 (0.7-4.5); Lymphocytes % 22.9 % (10-50); Mean Corpuscular HGB Conc 33.5 g/dL (31.8-35.4); Mean Corpuscular Hemoglobin 35.2 pg (27.0-31.2); Mean Corpuscular Volume 105.1 fl (81-99); Mean Platelet Volume 9.1 fl (7.4-10.4); Monocytes # 0.4 K/mm3 (0.1-1.0); Monocytes % 4.3 % (1.7-9.3); Neutrophils # 5.6 K/mm3 (1.8-7.8); Neutrophils % 70.3 % (37.0-80.0); Platelet Count 328 K/mm3 (142-424); Red Blood Count 3.92 M/mm3 (4.20-5.40); Red Cell Distribution Width 13.8 % (11.5-17.5)
[2020-06-04 14:35] LABS: Alanine Aminotransferase 23 U/L (12-78); Albumin Level 4.6 g/dl (3.5-5.0); Albumin/Globulin Ratio 1.6 (1.1-1.8); Alkaline Phosphatase 63 U/L (38-126); Aspartate Amino Transferase 30 U/L (14-36); Bilirubin,Total 0.3 mg/dl (0.2-1.3); Blood Urea Nitrogen 13 mg/dl (7-17); Calcium 9.7 mg/dl (8.4-10.2); Carbon Dioxide 26 mmol/L (22.0-30.0); Chloride 101 mmol/L (98-107); Chol/HDL Ratio 5.1 (1-3.5); Cholesterol 271 mg/dl (140-200); Estimated Glomerular Filt Rate 61 ml/min (>60); GFR (African American) 74 ML/MIN (>60); Globulin 2.8 g/dL (1.3-3.2); Glucose 103 mg/dl (74-100); HDL Cholesterol 53 mg/dl (40-60); Sodium 137 mmol/L (136-145); Total Protein,Serum 7.4 g/dl (6.3-8.2); Triglycerides 322 mg/dl (30-150); VLDL Cholesterol 64 mg/dL (0-40)
[2020-06-04 14:52] LABS: Direct LDL Cholesterol 164.39 mg/dL (100-129); T4 (Thyroxine) 7.5 ug/dl (5.53-11.0)
[2020-06-04 15:59] LABS: Anion Gap 14.2 mEq/L (5-15); Potassium 4.2 mmoL/L (3.5-5.1)
[2020-06-12 02:47] LABS: 1,25 Dihydroxy Vitamin D 55 pg/mL (.); 1,25-Dihydroxy, Vitamin D-2 <10 pg/mL (.); 1,25-Dihydroxy, Vitamin D-3 55 pg/mL (.)
== END ==
PROVIDERS: Visit Provider Nurse Practitioner Family
DX: E66.9 Obesity, unspecified (principal)
CPT/HCPCS: 80053; 80061; 82652; 84436; 84443; 85025

== ENCOUNTER → 2020-06-15 07:17 | Outpatient (CLI) | payer OTHER, SELFPAY ==
[2020-06-15 10:19] LABS: Hemoglobin A1C 5.6 % (4.0-6.0)
== END ==
PROVIDERS: Visit Provider Nurse Practitioner Family
DX: R73.9 Hyperglycemia, unspecified (principal); E78.2 Mixed hyperlipidemia
CPT/HCPCS: 36415; 83036

== ENCOUNTER → 2021-09-24 13:24 | Outpatient (CLI) | payer OTHER, SELFPAY ==
[2021-09-24 13:53] LABS: Chloride 104 mmol/L (98-107); Potassium 4.9 mmoL/L (3.5-5.1); Sodium 138 mmol/L (136-145)
[2021-09-24 13:55] LABS: Blood Urea Nitrogen 14 mg/dl (7-17); Estimated Glomerular Filt Rate 78 ml/min (>60); GFR (African American) 95 ML/MIN (>60)
[2021-09-24 13:56] LABS: Alanine Aminotransferase 23 U/L (12-78); Albumin Level 4.5 g/dl (3.5-5.0); Albumin/Globulin Ratio 1.7 (1.1-1.8); Alkaline Phosphatase 72 U/L (38-126); Anion Gap 12.9 mEq/L (5-15); Aspartate Amino Transferase 37 U/L (14-36); Basophils # 0.1 K/mm3 (0-0.2); Basophils % 0.8 % (0.1-2.0); Bilirubin,Total 0.5 mg/dl (0.2-1.3); Calcium 9.4 mg/dl (8.4-10.2); Carbon Dioxide 26 mmol/L (22.0-30.0); Chol/HDL Ratio 5.2 (1-3.5); Cholesterol 246 mg/dl (140-200); Eosinophils # 0.2 K/mm3 (0.0-0.4); Eosinophils % 2.6 % (0.1-12.0); Globulin 2.7 g/dL (1.3-3.2); Glucose 93 mg/dl (74-100); HDL Cholesterol 47 mg/dl (40-60); Hematocrit 41.5 % (37.0-47.0); Hemoglobin 13.7 g/dL (12.2-16.2); Lymphocytes # 2.3 K/mm3 (0.7-4.5); Lymphocytes % 29.4 % (10-50); Mean Corpuscular Hemoglobin 34.3 pg (27.0-31.2); Mean Corpuscular Volume 103.7 fl (81-99); Mean Platelet Volume 8.9 fl (7.4-10.4); Monocytes # 0.4 K/mm3 (0.1-1.0); Monocytes % 4.8 % (1.7-9.3); Neutrophils # 4.8 K/mm3 (1.8-7.8); Neutrophils % 62.3 % (37.0-80.0); Platelet Count 397 K/mm3 (142-424); Red Blood Count 4.01 M/mm3 (4.20-5.40); Red Cell Distribution Width 14.2 % (11.5-17.5); Total Protein,Serum 7.2 g/dl (6.3-8.2); Triglycerides 179 mg/dl (30-150); VLDL Cholesterol 36 mg/dL (0-40); White Blood Count 7.8 K/mm3 (4.8-10.8)
[2021-09-24 14:13] LABS: T4 (Thyroxine) 7.2 ug/dl (5.53-11.0)
[2021-09-24 14:50] LABS: 25-OH Vitamin D, Total 45.1 ng/mL (30-100)
[2021-09-24 15:03] LABS: Thyroid Stimulating Hormone 1.65 uIU/mL (0.465-4.68)
== END ==
PROVIDERS: Visit Provider Nurse Practitioner Family
DX: F32.9 Major depressive disorder, single episode, unspecified (principal); K59.00 Constipation, unspecified; E66.9 Obesity, unspecified; I10 Essential (primary) hypertension; Z68.39 Body mass index [BMI] 39.0-39.9, adult
CPT/HCPCS: 80053; 80061; 82306; 84436; 84443; 85025

== ENCOUNTER → 2021-10-11 13:28 | Outpatient (CLI) | payer OTHER, SELFPAY | PROVIDERS: PCP Nurse Practitioner Family; Visit Provider Nurse Practitioner Family | DX: G47.30 Sleep apnea, unspecified (principal); R06.83 Snoring | CPT/HCPCS: 95806 ==

== ENCOUNTER → 2023-01-18 08:23 | Outpatient (CLI) | payer OTHER, SELFPAY ==
[2023-01-18 09:05] LABS: Basophils # 0.1 K/mm3 (0-0.2); Basophils % 0.7 % (0.1-2.0); Eosinophils # 0.1 K/mm3 (0.0-0.4); Eosinophils % 1.9 % (0.1-12.0); Hematocrit 43.3 % (37.0-47.0); Hemoglobin 13.4 g/dL (12.2-16.2); Lymphocytes # 2.1 K/mm3 (0.7-4.5); Lymphocytes % 27.8 % (10-50); Mean Corpuscular HGB Conc 30.9 g/dL (31.8-35.4); Mean Corpuscular Hemoglobin 32.8 pg (27.0-31.2); Mean Corpuscular Volume 106.1 fl (81-99); Mean Platelet Volume 7.9 fl (7.4-10.4); Monocytes # 0.4 K/mm3 (0.1-1.0); Monocytes % 5.4 % (1.7-9.3); Neutrophils # 4.9 K/mm3 (1.8-7.8); Neutrophils % 64.2 % (37.0-80.0); Platelet Count 347 K/mm3 (142-424); Red Blood Count 4.08 M/mm3 (4.20-5.40); Red Cell Distribution Width 14.2 % (11.5-17.5); White Blood Count 7.6 K/mm3 (4.8-10.8)
[2023-01-18 09:47] LABS: Alanine Aminotransferase 29 U/L (12-78); Albumin Level 4.3 g/dl (3.5-5.0); Albumin/Globulin Ratio 1.7 (1.1-1.8); Alkaline Phosphatase 64 U/L (38-126); Anion Gap 11.2 mEq/L (5-15); Aspartate Amino Transferase 32 U/L (14-36); Bilirubin,Total 0.3 mg/dl (0.2-1.3); Blood Urea Nitrogen 12 mg/dl (7-17); Calcium 8.8 mg/dl (8.4-10.2); Carbon Dioxide 25 mmol/L (22.0-30.0); Chloride 104 mmol/L (98-107); Chol/HDL Ratio 5.5 (1-3.5); Cholesterol 241 mg/dl (140-200); Estimated Glomerular Filt Rate 68 ml/min (>60); GFR (African American) 82 ML/MIN (>60); Globulin 2.6 g/dL (1.3-3.2); Glucose 113 mg/dl (74-100); HDL Cholesterol 44 mg/dl (40-60); Potassium 4.2 mmoL/L (3.5-5.1); Sodium 136 mmol/L (136-145); Total Protein,Serum 6.9 g/dl (6.3-8.2); Triglycerides 232 mg/dl (30-150); VLDL Cholesterol 46 mg/dL (0-40)
[2023-01-18 09:58] LABS: Direct LDL Cholesterol 146.85 mg/dL (100-129)
[2023-01-18 10:17] LABS: Thyroid Stimulating Hormone 3.42 uIU/mL (0.465-4.68)
== END ==
PROVIDERS: PCP Physician Assistant; Visit Provider Nurse Practitioner Family
DX: I10 Essential (primary) hypertension (principal)
CPT/HCPCS: 36415; 80053; 80061; 84443; 85025

== ENCOUNTER 2024-02-27 11:06 | Outpatient (CLI) | payer OTHER, SELFPAY ==
[2024-02-27 19:04] LABS: Alanine Aminotransferase 25 U/L (12-78); Albumin Level 4.6 g/dl (3.5-5.0); Albumin/Globulin Ratio 1.8 (1.1-1.8); Alkaline Phosphatase 60 U/L (38-126); Aspartate Amino Transferase 33 U/L (14-36); Basophils # 0.1 K/mm3 (0-0.2); Basophils % 1.1 % (0.1-2.0); Bilirubin,Total 0.7 mg/dl (0.2-1.3); Blood Urea Nitrogen 10 mg/dl (7-17); Calcium 9.9 mg/dl (8.4-10.2); Carbon Dioxide 28 mmol/L (22.0-30.0); Chloride 99 mmol/L (98-107); Chol/HDL Ratio 5.2 (1-3.5); Cholesterol 277 mg/dl (140-200); Eosinophils # 0.2 K/mm3 (0.0-0.4); Estimated Glomerular Filt Rate 77 ml/min (>60); GFR (African American) 93 ML/MIN (>60); Globulin 2.5 g/dL (1.3-3.2); Glucose 91 mg/dl (74-100); HDL Cholesterol 53 mg/dl (40-60); Hemoglobin 13.6 g/dL (12.2-16.2); Lymphocytes # 1.6 K/mm3 (0.7-4.5); Lymphocytes % 21.5 % (10-50); Mean Corpuscular HGB Conc 31.7 g/dL (31.8-35.4); Mean Corpuscular Hemoglobin 33.8 pg (27.0-31.2); Mean Corpuscular Volume 106.7 fl (81-99); Mean Platelet Volume 10.2 fl (7.4-10.4); Monocytes # 0.4 K/mm3 (0.1-1.0); Monocytes % 4.9 % (1.7-9.3); Neutrophils # 5.3 K/mm3 (1.8-7.8); Neutrophils % 69.6 % (37.0-80.0); Platelet Count 339 K/mm3 (142-424); Red Blood Count 4.03 M/mm3 (4.20-5.40); Red Cell Distribution Width 14.6 % (11.5-17.5); Sodium 138 mmol/L (136-145); Total Protein,Serum 7.1 g/dl (6.3-8.2); Triglycerides 215 mg/dl (30-150); VLDL Cholesterol 43 mg/dL (0-40); White Blood Count 7.6 K/mm3 (4.8-10.8)
[2024-02-27 19:22] LABS: 25-OH Vitamin D, Total 39.3 ng/mL (30-100)
[2024-02-27 19:27] LABS: Direct LDL Cholesterol 159.31 mg/dL (100-129)
[2024-02-27 19:36] LABS: Thyroid Stimulating Hormone 1.85 uIU/mL (0.465-4.68)
== END 2024-02-27 23:59 | disposition home or self-care (01) ==
LOC: LAB.DROPOF 02-28 11:06
PROVIDERS: PCP Physician Assistant; Visit Provider Physician Assistant
DX: I10 Essential (primary) hypertension (principal); Z79.899 Other long term (current) drug therapy
CPT/HCPCS: 80053; 80061; 82306; 84443; 85025